=== PATIENT | male | born 1955 | race Caucasian/White ===

== ENCOUNTER 2016-11-02 19:51 | Emergency (ER) | payer OTHER ==
[2016-11-02] MEDS ORDERED: OPTIRAY 350 100 ML VIAL HMH IV ONE (19:52)
[2016-11-02] MEDS ORDERED: METOCLOPRAMIDE 10 MG/2 ML VIAL ONE (21:42)
[2016-11-02] MEDS ORDERED: SODIUM CHLORIDE 0.9% 1,000 ML ONE (21:42)
[2016-11-02] MEDS ORDERED: DIPHENHYDRAMINE 50 MG/ML VIAL ONE (21:42)
[2016-11-03] MEDS ORDERED: DILAUDID 1 MG/ML AMP ONE (01:25)
[2016-11-03] MEDS ORDERED: CEFTRIAXONE 1 GM VIAL ONE (01:25)
[2016-11-03] MEDS ORDERED: SODIUM CHLORIDE 0.9% 100 ML IV ONE (01:25)
== END 2016-11-03 02:06 | disposition home or self-care (01) ==
LOC: ER 19:51
DX: J20.9 Acute bronchitis, unspecified (principal); J90 Pleural effusion, not elsewhere classified
CPT/HCPCS: 36415; 71260; 80053; 81001; 83605; 85025; 87040; 96361; 96365; 96375